=== PATIENT | female | born 1965 | race Caucasian/White ===

== ENCOUNTER 2016-07-13 11:29 | Emergency (ER) | payer BC ==
[2016-07-13 12:28] VITALS: BP 155/83
[2016-07-13] MEDS ORDERED: Ipratropium 0.5MG/2.5ML NEB* 0.5 MG/2.5 ML NEB.SOLN INH ONE (13:32)
[2016-07-13] MEDS ORDERED: Albuterol 2.5 MG/3 ML NEB.SOL* (0.083%) INH ONE (13:32)
[2016-07-13] MEDS ORDERED: predniSONE TAB* 20 MG PO ONE (13:33)
--- NOTE | 2016-07-13 13:37 | UC ---
Respiratory Complaint HPI - HPI Summary HPI Summary: 51 yo female with 2 week hx of cough and wheezing chest feels tight no f/c no myalgias no cp/sob some post nasal drip using a pro air MDI - History of Current Complaint Chief Complaint: UCGeneralIllness Stated Complaint: COUGH CONGESTION Time Seen by Provider: 07/13/16 13:26 Hx Obtained From: Patient Hx Last Menstrual Period: 06/24/16 Onset/Duration: Gradual Onset, Lasting Minutes, Lasting Weeks Severity Initially: Mild Severity Currently: Moderate Pain Intensity: 2 Pain Scale Used: 0-10 Numeric Character: Cough: Nonproductive Aggravating Factors: Deep Breaths, Recumbent Position Alleviating Factors: Bronchodilator Associated Signs And Symptoms: Positive: Wheezing, Nasal Congestion Related History: Similar Episode/Dx as: - bronchitis - Allergies/Home Medications Allergies/Adverse Reactions: Allergies Allergy/AdvReac Type Severity Reaction Status Date / Time Pseudoephedrine Allergy See Comment Verified 07/13/16 12:29 PMH/Surg Hx/FS Hx/Imm Hx Previously Healthy: Yes Respiratory History Of: Reports: Asthma - as child, Bronchitis - Surgical History Surgical History: None - Family History Known Family History: Positive: Hypertension, Diabetes - Social History Alcohol Use: Occasionally Substance Use Type: None Smoking Status (MU): Light Every Day Tobacco Smoker Amount Used/How Often: 1/2 pack per day Length of Time of Smoking/Using Tobacco: started age 26 Have You Smoked in the Last Year: No Cessation Counseling: Patient Advised to Stop Review of Systems Constitutional: Negative Skin: Negative Eyes: Negative ENT: Nasal Discharge Respiratory: Cough Cardiovascular: Negative Gastrointestinal: Negative Genitourinary: Negative Motor: Negative Neurovascular: Negative Musculoskeletal: Negative Neurological: Negative Psychological: Negative All Other Systems Reviewed And Are Negative: Yes Physical Exam Triage Information Reviewed: Yes Appearance: Well-Appearing, No Pain Distress, Well-Nourished Vital Signs: Initial Vital Signs Temp 99.8 F 07/13/16 12:20 Pulse 105 07/13/16 12:20 Resp 16 07/13/16 12:20 BP 155/83 07/13/16 12:20 Pulse Ox 97 07/13/16 12:20 Eyes: Positive: Conjunctiva Clear ENT: Positive: Hearing grossly normal. Negative: Nasal congestion, Nasal drainage, TMs normal, TM bulging, Trismus, Muffled/hoarse voice Neck: Positive: Supple, Nontender, No Lymphadenopathy Respiratory: Positive: No respiratory distress, No accessory muscle use, Wheezing Cardiovascular: Positive: RRR, Bradycardia Musculoskeletal: Positive: ROM Intact, No Edema Neurological: Positive: Alert Psychological Exam: Normal Skin Exam: Normal UC Diagnostic Evaluation - Laboratory O2 Sat by Pulse Oximetry: 97 - normal/not hypoxic Re-Evaluation - Re-Evaluation First Eval Change: Improved - LUNGS CLEAR Respiratory Course/Dx - Differential Dx/Diagnosis Provider Diagnoses: ACUTE BRONCHITIS WITH BRONCHOSPASM. CIGARETTE ABUSE Discharge - Discharge Plan Condition: Stable Disposition: HOME Prescriptions: Azithromycin TAB* [Zithromax TAB*] 250 mg PO DAILY #6 tab Prednisone [Deltasone] 40 mg PO DAILY #8 tab Patient Education Materials: Acute Bronchitis (ED) Referrals: [facility] [place] [facility] REFERRAL [Outside] - If Needed (CALL THIS NUMBER FOR HELP FINDING A LOCAL MD ) Additional Instructions: USE INHALER DIRECTED YOU NEED TO STOP SMOKING RECHECK FOR NEW OR WORSENING SYMPTOMS RECHECK IN 4-5 DAYS IF NOT BACK TO NORMAL
[2016-07-13] MEDS ORDERED: Albuterol HFA INHALER* 8 gm MDI INH ONE (14:09)
== END 2016-07-13 14:26 | disposition home or self-care (01) ==
LOC: UCCORT 11:29
DX: J20.9 Acute bronchitis, unspecified (principal); R03.0 Elevated blood-pressure reading, without diagnosis of hypertension; F17.210 Nicotine dependence, cigarettes, uncomplicated
CPT/HCPCS: 99203; A9270-GY; G0463; J7512; J7644

== ENCOUNTER 2016-07-22 12:45 | Emergency (ER) | payer BC ==
[2016-07-22 12:58] VITALS: BP 149/72
--- NOTE | 2016-07-22 13:13 | UC ---
Throat Pain/Nasal Leonardo HPI - HPI Summary HPI Summary: SINUS CONGESTION AND COUGH FOR THREE WEEKS; EIGHT DAYS AGO GIVEN Z PACK AND PREDNISONE, FELT A LITTLE BETTER BUT LAST FEW DAYS GETTING WORSE. - History of Current Complaint Chief Complaint: UCRespiratory Stated Complaint: CHEST CONGESTION Time Seen by Provider: 07/22/16 12:54 Hx Obtained From: Patient Hx Last Menstrual Period: 06/24/16 Onset/Duration: Sudden Onset, Lasting Weeks, Worse Since - THREE DAYS Severity: Moderate Cough: Nonproductive Associated Signs & Symptoms: Positive: Hoarseness, Sinus Discomfort, Nasal Discharge - Epiglottits Risk Factors Epiglottis Risk Factors: Negative - Allergies/Home Medications Allergies/Adverse Reactions: Allergies Allergy/AdvReac Type Severity Reaction Status Date / Time Pseudoephedrine Allergy See Comment Verified 07/22/16 12:58 Home Medications: Home Medications Aspirin TAB* [Aspirin 325 MG TAB*] 325 mg PO DAILY 07/22/16 [History Confirmed 07/22/16] PMH/Surg Hx/FS Hx/Imm Hx Previously Healthy: Yes Respiratory History Of: Reports: Asthma - as child, Bronchitis - Surgical History Surgical History: None - Family History Known Family History: Positive: Hypertension, Diabetes - Social History Occupation: Employed Full-time Lives: With Family Alcohol Use: Occasionally Substance Use Type: None Smoking Status (MU): Light Every Day Tobacco Smoker Amount Used/How Often: 1/2 pack per day Length of Time of Smoking/Using Tobacco: started age 26 Have You Smoked in the Last Year: No Cessation Counseling: Counseled 3+Min - 10 Min Review of Systems Constitutional: Negative Skin: Negative ENT: Nasal Discharge Respiratory: Cough Cardiovascular: Negative Gastrointestinal: Negative Genitourinary: Negative Motor: Negative Neurovascular: Negative Musculoskeletal: Negative Neurological: Negative Psychological: Negative All Other Systems Reviewed And Are Negative: Yes Physical Exam Triage Information Reviewed: Yes Appearance: Well-Appearing, No Pain Distress, Well-Nourished Vital Signs: Initial Vital Signs Temp 99.4 F 07/22/16 12:55 Pulse 101 07/22/16 12:55 Resp 16 07/22/16 12:55 BP 149/72 07/22/16 12:55 Pulse Ox 95 07/22/16 12:55 Vital Signs Reviewed: Yes Eye Exam: Normal Eyes: Positive: Conjunctiva Clear ENT Exam: Normal ENT: Positive: Hearing grossly normal, Pharynx normal, Nasal congestion, TM dull Dental Exam: Normal Neck exam: Normal Neck: Positive: Supple, Nontender, No Lymphadenopathy. Negative: Nuchal Rigidity Respiratory Exam: Other - COUGH Respiratory: Positive: Chest non-tender, Lungs clear, Normal breath sounds, No respiratory distress, No accessory muscle use Cardiovascular Exam: Normal Cardiovascular: Positive: RRR, No Murmur, Pulses Normal Abdominal Exam: Normal Abdomen Description: Positive: Nontender, No Organomegaly Musculoskeletal Exam: Normal Musculoskeletal: Positive: Strength Intact, ROM Intact Neurological Exam: Normal Psychological Exam: Normal Psychological: Positive: Normal Response To Family Skin Exam: Normal Throat Pain/Nasal Course/Dx - Differential Dx/Diagnosis Differential Diagnosis/HQI/PQRI: Otitis Media, Pharyngitis, Sinusitis, URI Provider Diagnoses: SINUSITIS. BRONCHITIS Discharge - Discharge Plan Condition: Stable Disposition: HOME Prescriptions: Amoxicillin/Clavulanate TAB* [Augmentin TAB 875*] 875 mg PO BID #20 tab Benzonatate CAP* [Tessalon 100 MG CAP*] 100 mg PO TID PRN #15 cap PRN Reason: Cough Patient Education Materials: Sinusitis (ED) [place] [facility] [place]] No Primary Care Phys,NOPCP [Primary Care Provider] -
== END 2016-07-22 13:14 | disposition home or self-care (01) ==
LOC: UCCORT 12:45
DX: J32.9 Chronic sinusitis, unspecified (principal); J40 Bronchitis, not specified as acute or chronic; R03.0 Elevated blood-pressure reading, without diagnosis of hypertension; Z88.8 Allergy status to other drugs, medicaments and biological substances; F17.210 Nicotine dependence, cigarettes, uncomplicated; Z71.6 Tobacco abuse counseling
CPT/HCPCS: 99212; G0463

== ENCOUNTER 2016-08-01 14:02 | Emergency (ER) | payer BC ==
[2016-08-01] MEDS ORDERED: Levalbuterol 0.63MG/3ML NEB INH ONE (14:22)
--- NOTE | 2016-08-01 14:32 | UC ---
Respiratory Complaint HPI - HPI Summary HPI Summary: Patient has been having sinus issues for the past few months, treated twice for sinus infection but now has increased wheezing and SOB, does have seasonal allergies. - History of Current Complaint Stated Complaint: COUGH,TIGHT CHEST Time Seen by Provider: 08/01/16 14:16 Hx Obtained From: Patient Hx Last Menstrual Period: 06/24/16 ?: No Onset/Duration: Sudden Onset, Lasting Days Timing: Constant Severity Initially: Moderate Severity Currently: Severe Character: Cough: Nonproductive Aggravating Factors: Allergens, Exertion, Deep Breaths, Recumbent Position Alleviating Factors: Nothing Associated Signs And Symptoms: Positive: Dyspnea, Wheezing, Sinus Discomfort - Risk Factors Pulmonary Embolism Risk Factors: Negative Cardiac Risk Factors: Negative Pseudomonas Risk Factors: Negative Tuberculosis Risk Factors: Negative - Allergies/Home Medications Allergies/Adverse Reactions: Allergies Allergy/AdvReac Type Severity Reaction Status Date / Time Pseudoephedrine AdvReac See Comment Verified 08/01/16 14:49 PMH/Surg Hx/FS Hx/Imm Hx Previously Healthy: Yes Respiratory History Of: Reports: Asthma - as child, Bronchitis - Surgical History Surgical History: None - Family History Known Family History: Positive: Hypertension, Diabetes - Social History Alcohol Use: Occasionally Substance Use Type: None Smoking Status (MU): Light Every Day Tobacco Smoker Amount Used/How Often: 1/2 pack per day Length of Time of Smoking/Using Tobacco: started age 26 Have You Smoked in the Last Year: No Review of Systems Constitutional: Fatigue Skin: Negative Eyes: Negative ENT: Sore Throat, Ear Ache, Nasal Discharge Respiratory: Shortness Of Breath, Cough Cardiovascular: Negative Gastrointestinal: Negative Genitourinary: Negative Motor: Negative Neurovascular: Negative Musculoskeletal: Negative Neurological: Negative Psychological: Negative All Other Systems Reviewed And Are Negative: Yes Physical Exam Triage Information Reviewed: Yes Appearance: Well-Nourished, Ill-Appearing, Pain Distress Vital Signs Reviewed: Yes Eye Exam: Normal Eyes: Positive: Conjunctiva Clear ENT: Positive: Pharyngeal erythema, Nasal drainage, Other: - left cerumen impaction Dental Exam: Normal Neck exam: Normal Neck: Positive: Supple, Nontender, Enlarged Nodes @ - bilateral cervical Respiratory: Positive: Chest non-tender, Respiratory distress - mild, Rhonchi, Wheezing, Inspiration Cardiovascular Exam: Normal Cardiovascular: Positive: RRR, No Murmur, Pulses Normal Abdominal Exam: Normal Abdomen Description: Positive: Nontender, No Organomegaly, Soft Bowel Sounds: Positive: Present Musculoskeletal Exam: Normal Musculoskeletal: Positive: Strength Intact, ROM Intact, No Edema Neurological Exam: Normal Neurological: Positive: Alert, Muscle Tone Normal Psychological Exam: Normal Skin Exam: Normal Respiratory Course/Dx - Course Course Of Treatment: hx obtained, exam performed, meds reviewed, neb treatment administered with good results, left ear irrigaited. meds prescribed. - Differential Dx/Diagnosis Differential Diagnosis/HQI/PQRI: Asthma, Bronchitis, Exacerbation Of COPD, Influenza, Laryngitis, Sinusitis, Tuberculosis Provider Diagnoses: bronchospasm. allergic rhinitis Discharge - Discharge Plan Condition: Stable Disposition: HOME Prescriptions: guaiFENesin/CODIEN 100MG-10MG* [Robitussin AC 100Mg-10Mg*] 10 ml PO BEDTIME PRN #100 ml MDD 10 ml PRN Reason: Cough predniSONE TAB* [Deltasone TAB*] 40 mg PO DAILY #10 tab Patient Education Materials: Allergic Rhinitis (ED), Bronchospasm (ED) Referrals: No Primary Care Phys,NOPCP [Primary Care Provider] - Additional Instructions: Take the medications as prescribed. Increase your fluid intake and get plenty of rest.
[2016-08-01 14:49] VITALS: BP 123/70
== END 2016-08-01 15:28 | disposition home or self-care (01) ==
LOC: UCCORT 14:02
DX: J98.01 Acute bronchospasm (principal); J30.9 Allergic rhinitis, unspecified; F17.210 Nicotine dependence, cigarettes, uncomplicated; H61.22 Impacted cerumen, left ear; Z88.8 Allergy status to other drugs, medicaments and biological substances
CPT/HCPCS: 99213; A9270-GY; G0463

== ENCOUNTER 2016-08-31 09:10 | Emergency (ER) | payer BC ==
[2016-08-31 10:58] VITALS: BP 142/85
--- NOTE | 2016-08-31 11:46 | UC ---
Respiratory Complaint HPI - HPI Summary HPI Summary: Patient has hx of allergies and asthma, ran out of her inhaler and cant see her doctor till the 09/22. - History of Current Complaint Chief Complaint: UCGeneralIllness Stated Complaint: RESPIRATORY,MED REFILL Time Seen by Provider: 08/31/16 11:34 Hx Obtained From: Patient Hx Last Menstrual Period: FIRST WK OF AUGUST ?: No Onset/Duration: Still Present Timing: Constant Severity Initially: Mild Severity Currently: Mild Aggravating Factors: Allergens, Deep Breaths Alleviating Factors: Bronchodilator Associated Signs And Symptoms: Positive: Wheezing - Risk Factors Pulmonary Embolism Risk Factors: Negative Cardiac Risk Factors: Negative Pseudomonas Risk Factors: Negative Tuberculosis Risk Factors: Negative - Allergies/Home Medications Allergies/Adverse Reactions: Allergies Allergy/AdvReac Type Severity Reaction Status Date / Time Pseudoephedrine AdvReac See Comment Verified 08/31/16 10:53 Home Medications: Home Medications Cetirizine HCl [Zyrtec Allergy 10 MG TAB] 10 mg PO DAILY 08/31/16 [History Confirmed 08/31/16] Dextromethorphan-Phenylephrine [Daytime Multi Symptom Col] 2 cap PO Q8H PRN [History Confirmed 08/31/16] PMH/Surg Hx/FS Hx/Imm Hx Previously Healthy: Yes Respiratory History Of: Reports: Asthma - as child, Bronchitis - Surgical History Surgical History: Yes Surgery Procedure, Year, and Place: D&C - Family History Known Family History: Positive: Hypertension, Diabetes - Social History Alcohol Use: Occasionally Substance Use Type: None Smoking Status (MU): Former Smoker Amount Used/How Often: 1/2 pack per day Length of Time of Smoking/Using Tobacco: started age 26 Have You Smoked in the Last Year: No When Did the Patient Quit Smoking/Using Tobacco: 07/2016 Review of Systems Constitutional: Negative Skin: Negative Eyes: Negative ENT: Negative Respiratory: Cough Cardiovascular: Negative Gastrointestinal: Negative Genitourinary: Negative Motor: Negative Neurovascular: Negative Musculoskeletal: Negative Neurological: Negative Psychological: Negative All Other Systems Reviewed And Are Negative: Yes Physical Exam Triage Information Reviewed: Yes Appearance: Well-Appearing, Well-Nourished, Ill-Appearing Vital Signs: Initial Vital Signs Temp 99 F 08/31/16 10:44 Pulse 101 08/31/16 10:44 Resp 18 08/31/16 10:44 BP 142/85 08/31/16 10:44 Pulse Ox 96 08/31/16 10:44 Vital Signs Reviewed: Yes Eye Exam: Normal Eyes: Positive: Conjunctiva Clear ENT: Positive: Pharynx normal, TMs normal Dental Exam: Normal Neck exam: Normal Neck: Positive: Supple, Nontender, No Lymphadenopathy Respiratory: Positive: Chest non-tender, No respiratory distress, No accessory muscle use, Wheezing, Inspiration Cardiovascular Exam: Normal Cardiovascular: Positive: RRR, No Murmur, Pulses Normal Abdominal Exam: Normal Abdomen Description: Positive: Nontender, No Organomegaly, Soft Bowel Sounds: Positive: Present Musculoskeletal Exam: Normal Musculoskeletal: Positive: Strength Intact, ROM Intact, No Edema Neurological Exam: Normal Neurological: Positive: Alert, Muscle Tone Normal Psychological Exam: Normal Skin Exam: Normal UC Diagnostic Evaluation - Laboratory O2 Sat by Pulse Oximetry: 96 Respiratory Course/Dx - Course Course Of Treatment: hx obtained, exam performed, meds reviewed, refill for albuterol given - Differential Dx/Diagnosis Differential Diagnosis/HQI/PQRI: Asthma, Bronchitis, Influenza, Laryngitis Provider Diagnoses: asthma. wheezing Discharge - Discharge Plan Condition: Stable Disposition: HOME Patient Education Materials: Albuterol (By mouth) Additional Instructions: you have been given a refill for your albuterol Use every 4 hours as needed for cough and SOB
== END 2016-08-31 11:53 | disposition home or self-care (01) ==
LOC: UCCORT 09:10
DX: J45.909 Unspecified asthma, uncomplicated (principal); Z76.0 Encounter for issue of repeat prescription; Z87.891 Personal history of nicotine dependence
CPT/HCPCS: 99212; G0463